=== PATIENT | male | born 1975 | race Hispanic/Latino ===

== ENCOUNTER 2021-08-24 19:41 | Emergency (ER) | payer BC ==
--- OUTSIDE RECORDS SUMMARY | 2021-08-24 19:45 | XMS REPORT | Continuity of Care Document ---
:1975 Author Organization [facility] t Address [address] [place] [address] Care Team Providers Name Role Phone Jean Attending Clinician Unavailable Merlin Attending Clinician Unavailable Payers Payer Name Policy Type Policy Number Effective Date Expiration Date S ource Problems This patient has no known problems. Allergies, Adverse Reactions, Alerts This patient has no known allergies or adverse reactions. Medications This patient has no known medications. Procedures This patient has no known procedures. Encounters Start End Encounter Admission Attending Care Care Encounter Source Date/Time Date/Time Type Type Clinicians Facility Department ID 2021-06-11 Outpatient Jean, JUAN [facility] [id number] [facility] 13:18:41 [place] [id number] [facility] 2021-06-11 Outpatient Jean, STNATACHA [facility] [id number] [facility] 13:04:33 Russell [id number] [facility] 2021-06-11 Outpatient Jean STNATACHA [facility] [id number] [facility] 12:56:47 Russell [id number] [facility] 2021-06-11 Outpatient Jean STNATACHA [facility] [id number] [facility] 12:55:00 Russell [id number] [facility] 2021-06-11 Outpatient Jean, STNATACHA [facility] [id number] [facility] 12:53:01 Russell [id number] [facility] 2021-02-20 2021-02-20 Outpatient [facility] [id number] [facility] 2020-11-29 2020-11-29 Outpatient [facility] [id number] [facility] 2020-11-21 2020-11-21 [id number] 14:07[facility] 14:07:00 [facility] -[id number] [facility] [place] [facility] 2020-11-21 2020-11-21 Outpatient [facility]LS [facility] [id number] [facility] 2020-11-15 2020-11-15 Outpatient [facility] [id number] [facility] 2020-10-02 2020-10-02 Outpatient [facility] [id number] [facility] 2020-09-11 2020-09-11 Outpatient [facility] [id number] [facility] 2020-09-06 2020-09-06 Outpatient [facility] [id number] [facility] 2020-09-05 2020-09-05 Outpatient [facility] [id number] [facility] ent Clinics Results Test Description Test Time Test Comments Results Result Sourc e Comments XR Chest Pa Lat STANDARD [facility]: JEREMI AYALA III : 1975 Sex: M [facility] Pt Name: JEREMI AYALA III [address] [facility] Phys: [place] [address] : 1975 Age: 45 SEX:M [phone] Exam Date: 11/21/20 Status: REG CLI Acct: [id number] Loc: [facility] Pt Unit #: [id number] Report #: [id number] CC: Andrea Boyer MD IMAGING SERVICES REPORT Order # Category/Exam [id number] RAD/XR Chest Pa Lat STANDARD ([id number]): . Results XR Chest Pa Lat STANDARD HISTORY: Shortness of breath COMPARISON: None FINDINGS: The heart size is normal. The lungs are well expanded without focal areas of consolidation, pneumothorax or pleural effusions. IMPRESSION: No radiographic evidence of acute cardiopulmonary process. Reported By: Baron Green MD Electronically Signed Date/Time: 11/21/201441 Technologist: BLANCA Dictated Date/Time: 11/21/201441 Transcribed Date/Time:
[2021-08-24] MEDS ORDERED: ONDANSETRON 4 MG/2 ML VIAL ONE (20:05)
[2021-08-24] MEDS ORDERED: MORPHINE 4 MG/ML SYR ONE ×2 (20:05→23:52)
[2021-08-24] MEDS ORDERED: NA CHLORIDE 0.9% 1,000 ML ONE (20:05)
[2021-08-24 20:16] LABS: Urine Blood Trace-intact (Negative); Urine Glucose Negative (Negative); Urine Protein Negative (Negative); Urine pH 7.5 (5.0-7.0)
[2021-08-24 20:19] LABS: Absolute Lymphocytes (CBC) 2.4 K/uL (0.7-4.9); Hematocrit 40.7 % (39.6-49.0); Lymphocytes % 37.7 % (15.3-44.8); MPV 9.1 fL (7.6-11.3); RBC Red Blood Cell Count 4.35 M/uL (4.33-5.43)
[2021-08-24 20:34] LABS: Protime INR 1.03
[2021-08-24 20:34] LABS: Albumin 3.8 g/dL (3.4-5.0); Bilirubin Direct 0.1 mg/dL (0-0.2); Bilirubin Total 0.6 mg/dL (0.2-1.0); Potassium 3.5 mmol/L (3.5-5.1)
--- NOTE | 2021-08-24 21:12 | RAD REPORT ---
EXAM DESCRIPTION: RAD - Femur Left - 08/24/2021 9:01 pm CLINICAL HISTORY: trauma COMPARISON: No comparisons FINDINGS: No acute fracture. No malalignment. No significant focal degenerative changes. IMPRESSION: No acute osseous abnormality involving the left femur.
--- NOTE | 2021-08-24 21:13 | RAD REPORT ---
EXAM DESCRIPTION: RAD - Wrist Left 3 View - 08/24/2021 9:01 pm CLINICAL HISTORY: trauma COMPARISON: No comparisons FINDINGS: No acute fracture. No malalignment. No significant focal degenerative changes. IMPRESSION: No acute osseous abnormality involving the left wrist.
--- NOTE | 2021-08-24 21:14 | RAD REPORT ---
EXAM DESCRIPTION: RAD - Wrist Right 3 View - 08/24/2021 9:01 pm CLINICAL HISTORY: trauma COMPARISON: No comparisons FINDINGS/IMPRESSION: No acute fracture. No malalignment. No significant focal degenerative changes.
--- NOTE | 2021-08-24 21:21 | RAD REPORT ---
EXAM DESCRIPTION: CT - Head Brain Wo Cont - 08/24/2021 9:02 pm CLINICAL HISTORY: TRAUMA COMPARISON: No comparisons TECHNIQUE: All CT scans are performed using dose optimization technique as appropriate and may inclu de automated exposure control or mA/KV adjustment according to patient size. FINDINGS: No intracranial hemorrhage, hydrocephalus or extra-axial fluid collection.No areas of brai n edema or evidence of midline shift. Mild ethmoid air cell thickening. The calvarium is intact. IMPRESSION: No acute intracranial abnormality.
--- NOTE | 2021-08-24 21:23 | RAD REPORT ---
EXAM DESCRIPTION: CT - C Spine Wo Con - 08/24/2021 9:02 pm CLINICAL HISTORY: TRAUMA COMPARISON: No comparisons TECHNIQUE: CT Scan was obtained of the cervical spine without contrast. Reformats were provided in t he sagittal and coronal plane. All CT scans are performed using dose optimization technique as approp riate and may include automated exposure control or mA/KV adjustment according to patient size. FINDINGS: No acute fracture of the cervical spine. No traumatic malalignment. No prevertebral edema. No significant focal degenerative changes. No suspicious thyroid nodules or lymphadenopathy. The julianne g apices are clear. IMPRESSION: No fracture or traumatic malalignment of the cervical spine.
--- NOTE | 2021-08-24 21:25 | RAD REPORT ---
EXAM DESCRIPTION: CT - Thorax W/ Con - 08/24/2021 9:03 pm CLINICAL HISTORY: TRAUMA COMPARISON: Head Brain Wo Cont dated 08/24/2021 FINDINGS: Chest Wall: No suspicious thyroid nodules or pathologic lymphadenopathy. Lungs: No acute abnormality. Pleura: No significant effusions or pneumothorax. Mediastinum/norma: No pathologic lymphadenopathy. Pulmonary arteries/Aorta: No filling defect identified. No aortic aneurysm. Heart: No significant pericardial effusion. Normal heart size. Upper abdomen: No acute abnormality. Bones: No acute abnormality. All CT scans are performed using dose optimization technique as appropriate and may include automated exposure control or mA/KV adjustment according to patient size. IMPRESSION: No evidence of significant trauma to the chest.
--- NOTE | 2021-08-24 21:30 | RAD REPORT ---
EXAM DESCRIPTION: CTAbdomen Pelvis W Contrast - 08/24/2021 9:03 pm CLINICAL HISTORY: TRAUMA COMPARISON: No comparisons TECHNIQUE: CT of the abdomen and pelvis was performed with contrast. All CT scans are performed using dose optimization technique as appropriate and may include automated exposure control or mA/KV adjustment according to patient size. FINDINGS: Lower chest: No acute abnormality. Liver: No acute abnormality or suspicious lesions. Biliary: No biliary ductal dilatation. Stomach: No significant focal abnormality. Duodenum: No significant focal abnormality. Pancreas: No significant abnormality. Spleen: No significant abnormality. Adrenal: No suspicious lesions. Kidney/ureter: No hydronephrosis. No renal calculi. Retroperitoneum: No retroperitoneal adenopathy. Vascular: No aneurysm. Bowel: No significant focal abnormality. Peritoneum: No ascites or free air. Bladder: Grossly unremarkable. Reproductive: No adnexal masses. Bones: Acute fracture at the S5 level of the sacrum. There is mild displacement of approximately 4 mm . Hematoma is present in the right buttocks and left ischiorectal fossa. Presacral hematoma which is small also noted. Partially ankylosed right SI joint. Other: n/a IMPRESSION: 1. Sacral fracture involving S5. Mild displacement. No other evidence of significant tra chris to the abdomen or pelvis identified . 2. No evidence of significant trauma to the chest.
--- NOTE | 2021-08-24 23:03 | EDPHYS ---
Physician Documentation [facility] Name: Kavon Canas III Age: 46 yrs Sex: Male : 1975 Arrival Date: 08/24/2021 Time: 19:45 Bed 6 Private MD: ED Physician Parminder Romo HPI: 08/24 20:08 This 46 yrs old Male presents to ER via EMS with complaints of Fall. mh7 20:08 Trauma demographics: County: The injury occurred in [place] Location of Injury: The mh7 injury occurred at home, rental, Date: August 24, 2021. Mechanism of injury: Fall: the patient fell Fell through stairs that collapsed, approximately approximately 10 feet, and struck sand. Associated injuries: The patient sustained injury to the head, pain, injury to the low back, pain, tenderness, left wrist and right wrist, abrasion, contusion, painful injury, left thigh, painful injury. Onset: The symptoms/episode began/occurred just prior to arrival, today. Historical: - Allergies: 19:52 No Known Allergies; kd3 - Home Meds: 19:52 None [Active]; kd3 - PMHx: 19:52 None; kd3 - PSHx: 19:52 None; kd3 - Immunization history:: Adult Immunizations up to date, Client reports receiving the 2nd dose of the Covid vaccine. - Social history:: Smoking status: unknown. ROS: 20:08 Constitutional: Negative for fever, chills, and weight loss, Eyes: Negative for injury, mh7 pain, redness, and discharge, ENT: Negative for injury, pain, and discharge, Neck: Negative for injury, pain, and swelling, Cardiovascular: Negative for chest pain, palpitations, and edema, Respiratory: Negative for shortness of breath, cough, wheezing, and pleuritic chest pain, Abdomen/GI: Negative for abdominal pain, nausea, vomiting, diarrhea, and constipation, : Negative for injury, bleeding, discharge, and swelling, Neuro: Negative for headache, weakness, numbness, tingling, and seizure, Psych: Negative for depression, anxiety, suicide ideation, homicidal ideation, and hallucinations, Allergy/Immunology: Negative for hives, rash, and allergies, Endocrine: Negative for neck swelling, polydipsia, polyuria, polyphagia, and marked weight changes, Hematologic/Lymphatic: Negative for swollen nodes, abnormal bleeding, and unusual bruising. Exam: 20:08 Constitutional: This is a well developed, well nourished patient who is awake, alert, mh7 and in no acute distress. Head/Face: Normocephalic, atraumatic. Eyes: Pupils equal round and reactive to light, extra-ocular motions intact. Lids and lashes normal. Conjunctiva and sclera are non-icteric and not injected. Cornea within normal limits. Periorbital areas with no swelling, redness, or edema. ENT: Nares patent. No nasal discharge, no septal abnormalities noted. Tympanic membranes are normal and external auditory canals are clear. Oropharynx with no redness, swelling, or masses, exudates, or evidence of obstruction, uvula midline. Mucous membranes moist. Neck: Trachea midline, no thyromegaly or masses palpated, and no cervical lymphadenopathy. Supple, full range of motion without nuchal rigidity, or vertebral point tenderness. No Meningismus. Chest/axilla: Normal chest wall appearance and motion. Nontender with no deformity. No lesions are appreciated. Cardiovascular: Regular rate and rhythm with a normal S1 and S2. No gallops, murmurs, or rubs. Normal PMI, no JVD. No pulse deficits. Respiratory: Lungs have equal breath sounds bilaterally, clear to auscultation and percussion. No rales, rhonchi or wheezes noted. No increased work of breathing, no retractions or nasal flaring. Abdomen/GI: Soft, non-tender, with normal bowel sounds. No distension or tympany. No guarding or rebound. No evidence of tenderness throughout. 20:08 Psych: Awake, alert, with orientation to person, place and time. Behavior, mood, and affect are within normal limits. 20:08 Back: pain, that is moderate, of the lumbar area and sacrum, ROM is painful, with all movement, normal spinal alignment noted, CVA tenderness, is absent, vertebral tenderness, is appreciated at lumbar, sacrum and coccyx, muscle spasm, is not present. 20:08 Musculoskeletal/extremity: Extremities: noted in the right wrist: abrasion, contusion, pain, tenderness, noted in the left wrist: abrasion, contusion, pain, tenderness, noted in the left posterior thigh: pain, tenderness, ROM: limited active range of motion due to pain, in the left and right wrist, Circulation is intact in all extremities. Sensation intact. Compartment Syndrome exam of affected extremity: is normal. no numbness, no tingling, no sensation deficit, no palor, no weak pulses, Joints: the left wrist displays painful range of motion, tenderness, the right wrist displays painful range of motion, tenderness. 20:08 Skin: injury, abrasion(s), small abrasion noted, of the leftwrist and right wrist. 20:08 Neuro: Orientation: is normal, Mentation: is normal, Memory: is normal, Cranial nerves: grossly normal, Cerebellar function: is grossly normal, Motor: is normal, Sensation: is normal, Gait: not tested. seizure activity, is not displayed by the patient, Abnormal movements: there are no abnormal movements. Vital Signs: 19:48 BP 138 / 103; Pulse 79; Resp 17; Pulse Ox 100% ; Weight 99.79 kg; Height 5 ft. 6 in. kd3 (167.64 cm); Pain 8/10; 21:00 BP 128 / 81; Pulse 74; Resp 18 S; Pulse Ox 99% on R/A; as6 22:08 BP 146 / 73; Pulse 85; Resp 20 S; Pulse Ox 98% on R/A; as6 23:41 BP 109 / 65; Pulse 89; Resp 18 S; Pulse Ox 99% on R/A; as6 19:48 Body Mass Index 35.51 (99.79 kg, 167.64 cm) kd3 MDM: 22:59 Differential diagnosis: intra-abdominal injury, closed head injury, extremity fracture, mh7 C spine fracture, T spine fracture, L spine fracture. Data reviewed: vital signs, nurses notes, EMS record, lab test result(s), CBC, electrolytes, radiologic studies, CT scan, plain films. Data interpreted: Pulse oximetry: on room air is 98 %. Interpretation: normal. Counseling: I had a detailed discussion with the patient and/or guardian regarding: the historical points, exam findings, and any diagnostic results supporting the discharge/admit diagnosis, the presence of at least one elevated blood pressure reading (>120/80) during this emergency department visit, lab results, radiology results, the need to transfer to another facility, [facility] does not immediately have the required specialist. Response to treatment: the patient's symptoms have mildly improved after treatment. 23:02 Patient medically screened. 08/24 19:50 Order name: Basic Metabolic Panel; Complete Time: 21: [facility] 08/24 19:50 Order name: CBC with Diff; Complete Time: 21: 08/24 19:50 Order name: Type And Screen; Complete Time: 21:33 [facility] 08/24 19:50 Order name: LFT's; Complete Time: : [facility] 08/24 19:50 Order name: Protime (+inr); Complete Time: 21: 08/24 19:50 Order name: Ptt, Activated; Complete Time: : [facility] 08/24 19:50 Order name: Wrist Right 3 View XRAY; Complete Time: 21: 08/24 19:50 Order name: Wrist Left (3 View) XRAY; Complete Time: 21: 08/24 19:50 Order name: Femur Left XRAY; Complete Time: 21: [facility] 08/24 19:59 Order name: Head Brain Wo Cont; Complete Time: 21:33 [facility] 08/24 20:16 Order name: Urine Dipstick-Ancillary; Complete Time: 21: [facility] 08/24 21:28 Order name: ABO/RH no charge; Complete Time: 21:53 [facility] 08/24 19:50 Order name: Labs collected and sent; Complete Time: 19:57 [facility] 08/24 19:51 Order name: Urine Dipstick-Ancillary (obtain specimen); Complete Time: 20:18 [facility] 08/24 19:52 Order name: Cervical Collar; Complete Time: 19:57 [facility] 08/24 19:59 Order name: Thorax W/ Con; Complete Time: 21:33 [facility] 08/24 19:59 Order name: Abdomen ; Complete Time: 21:33 [facility] 08/24 20:01 Order name: C Spine Wo Con; Complete Time: 21:33 EDMS Administered Medications: 20:15 Drug: NS 0.9% 1000 ml Route: IV; Rate: 1000 ml; Site: right antecubital; kd3 23:42 Follow up: Response: No adverse reaction; IV Status: Completed infusion; IV Intake: as6 1000ml 20:16 Drug: Zofran (Ondansetron) 4 mg Route: IVP; Site: right antecubital; kd3 23:42 Follow up: Response: No adverse reaction as6 20:18 Drug: morphine 4 mg Route: IVP; Site: right antecubital; kd3 23:42 Follow up: Response: No adverse reaction; RASS: Alert and Calm (0) as6 23:52 Drug: morphine 4 mg Route: IVP; Site: right antecubital; as6 23:52 Follow up: Response: No adverse reaction; RASS: Alert and Calm (0) as6 Disposition Summary: 08/24/21 23:02 Transfer Ordered Transfer Location: [place] [address] Reason: Higher level of care mh7 Condition: Stable mh7 Problem: new mh7 Symptoms: have improved mh7 Accepting Physician: Dr. Espinoza(08/24/21 23:52) as6 Diagnosis - Sacral Fracture with mild displacement mh7 - Sacral Fracture with mild displacement, presacral hematoma mh7 Forms: - Medication Reconciliation Form mh7 - SBAR form 7 Signatures: Dispatcher [employer] EDParminder Palma MD MD mh7 Dev Soto, ALONA RN as6 Darcie Norris RN RN kd3 Corrections: (The following items were deleted from the chart) 20:00 19:51 Head C Spine CAP W Con+CT.RAD.BRZ ordered. EDMS EDMS 20:00 19:59 C Spine W/ Con ordered. EDMS EDMS 23:04 23:02 Dr. Espinoza mh7 mh7 23:52 23:04 Dr. Espinoza mh7 as6
--- NOTE | 2021-08-24 23:03 | ER ---
Nurse's Notes [facility] Name: Kavon Canas III Age: 46 yrs Sex: Male : 1975 Arrival Date: 08/24/2021 Time: 19:45 Bed 6 Private MD: Diagnosis: Sacral Fracture with mild displacement;Sacral Fracture with mild displacement, presacral hematoma Presentation: 08/24 19:47 Chief complaint:. kd3 19:48 Chief complaint: Patient states: pt was on vacation with his and they had a beach kd3 house. they were going up the stairs and the stair case collapsed from under them. pt and fell from close to the second story. Coronavirus screen: Vaccine status: Patient reports receiving the 2nd dose of the covid vaccine. Ebola Screen: No symptoms or risks identified at this time. Initial Sepsis Screen: Does the patient meet any 2 criteria? No. Patient's initial sepsis screen is negative. Does the patient have a suspected source of infection? No. Patient's initial sepsis screen is negative. Risk Assessment: Do you want to hurt yourself or someone else? Patient reports no desire to harm self or others. Onset of symptoms was August 24, 2021. 19:48 Method Of Arrival: EMS: [facility] kd3 19:48 Acuity: SONIA 2 kd3 Triage Assessment: 19:52 General: Appears in no apparent distress. Behavior is calm, cooperative. Pain: kd3 Complains of pain in back, wrists bilateral, tailbone Pain currently is 8 out of 10 on a pain scale. EENT: No deficits noted. Neuro: Level of Consciousness is awake, alert, obeys commands, Oriented to person, place, time, situation. Cardiovascular: Patient's skin is warm and dry. Respiratory: Airway is patent. GI: No deficits noted. : No deficits noted. Historical: - Allergies: 19:52 No Known Allergies; kd3 - Home Meds: 19:52 None [Active]; kd3 - PMHx: 19:52 None; kd3 - PSHx: 19:52 None; kd3 - Immunization history:: Adult Immunizations up to date, Client reports receiving the 2nd dose of the Covid vaccine. - Social history:: Smoking status: unknown. Screenin:54 Abuse screen: Denies threats or abuse. Denies injuries from another. Nutritional kd3 screening: No deficits noted. Tuberculosis screening: No symptoms or risk factors identified. Fall Risk None identified. Assessment: 19:55 Reassessment: see triage. kd3 Vital Signs: 19:48 BP 138 / 103; Pulse 79; Resp 17; Pulse Ox 100% ; Weight 99.79 kg; Height 5 ft. 6 in. kd3 (167.64 cm); Pain 8/10; 21:00 BP 128 / 81; Pulse 74; Resp 18 S; Pulse Ox 99% on R/A; as6 22:08 BP 146 / 73; Pulse 85; Resp 20 S; Pulse Ox 98% on R/A; as6 23:41 BP 109 / 65; Pulse 89; Resp 18 S; Pulse Ox 99% on R/A; as6 19:48 Body Mass Index 35.51 (99.79 kg, 167.64 cm) kd3 ED Course: 19:45 Patient arrived in ED. as6 19:46 Darcie Norris, ALONA is Primary Nurse. kd3 19:48 Parminder Romo MD is Attending Physician. 7 19:52 Triage completed. kd3 19:54 Arm band placed on right wrist. kd3 19:55 Patient has correct armband on for positive identification. Placed in gown. Bed in low kd3 position. Call light in reach. Side rails up X2. 21:03 Wrist Right 3 View XRAY In Process Unspecified. EDMS 21:03 Wrist Left (3 View) XRAY In Process Unspecified. EDMS 21:03 Femur Left XRAY In Process Unspecified. EDMS 21:04 Head Brain Wo Cont In Process Unspecified. EDMS 21:04 C Spine Wo Con In Process Unspecified. EDMS 21:05 Thorax W/ Con In Process Unspecified. EDMS 21:05 Abdomen In Process Unspecified. EDMS 23:43 No provider procedures requiring assistance completed. Patient transferred, IV remains as6 in place. Administered Medications: 20:15 Drug: NS 0.9% 1000 ml Route: IV; Rate: 1000 ml; Site: right antecubital; kd3 23:42 Follow up: Response: No adverse reaction; IV Status: Completed infusion; IV Intake: as6 1000ml 20:16 Drug: Zofran (Ondansetron) 4 mg Route: IVP; Site: right antecubital; kd3 23:42 Follow up: Response: No adverse reaction as6 20:18 Drug: morphine 4 mg Route: IVP; Site: right antecubital; kd3 23:42 Follow up: Response: No adverse reaction; RASS: Alert and Calm (0) as6 23:52 Drug: morphine 4 mg Route: IVP; Site: right antecubital; as6 23:52 Follow up: Response: No adverse reaction; RASS: Alert and Calm (0) as6 Intake: 23:42 IV: 1000ml; Total: 1000ml. as6 Outcome: 23:02 ER care complete, transfer ordered by . [facility] 23:43 Transferred by ground EMS to [facility], Transfer form completed. X-rays sent as6 w/ patient. 23:43 Condition: stable 23:43 Instructed on the need for transfer. 23:52 Patient left the ED. as6 Signatures: Dispatcher [employer] Parminder Romero MD MD mh7 Dev Soto RN RN as6 Darcie Norris RN RN kd3
[2021-08-25 01:59] VITALS: BP 109/65; O2SAT 99
== END 2021-08-24 23:52 | disposition short-term general hospital (02) ==
LOC: ER 19:41
DX: S32.10XA Unspecified fracture of sacrum, initial encounter for closed fracture (principal); S30.0XXA Contusion of lower back and pelvis, initial encounter; M25.532 Pain in left wrist; M25.531 Pain in right wrist; W10.9XXA Fall (on) (from) unspecified stairs and steps, initial encounter
CPT/HCPCS: 96361; 85025; 80048; 36415; 86900; 86850; 85610; 82565; 86901; 80076; 85730; 81003; 70450; 72125; 71260; 74177; 73110 ×2; 73552; 96375; 96374; 99285; Q9967; J7030; J2405